=== PATIENT | male | born 1980 | race Caucasian/White ===

== ENCOUNTER 2017-03-11 15:27 | Emergency (ER) | payer SELFPAY ==
[~2017-03-11] VITALS: Ht 193 cm; Wt 132.0 kg
[~2017-03-11 15:27] MED LIST: AUGMENTIN875 MG PO; BACTRIM,SEPT1 TABLET PO; DURAGESIC75 MCG TD; GABAPENTIN400 MG PO; LEVAQUIN750 MG PO; PERCOCET 10/1 TABLET PO
[2017-03-11 18:40] LABS: HEMATOCRIT 43.7 % (38.0-50.0); HEMOGLOBIN 15.3 G/DL (12.5-16.6); MCH 31.4 PG (29.0-34.0); MCV 89.5 FL (86-99); PLATELET COUNT 364 K/uL (156-360); RBC DIS.WIDTH-SD 46.4 % (39-53); RED BLOOD COUNT 4.88 M/uL (4.00-5.50); WHITE BLOOD COUNT 12.5 K/uL (4.1-10.2)
[2017-03-11 18:47] LABS: CHLORIDE 107 mEq/L (99-109)
[2017-03-11 18:48] LABS: POTASSIUM 4.3 mEq/L (3.7-5.4); SODIUM 140 mEq/L (136-147)
[2017-03-11 18:49] LABS: GLUCOSE 97 mg/dL (70-99)
[2017-03-11 18:53] LABS: CREATININE 1.1 mg/dL (0.6-1.3); GFR ESTIMATE (CALCULATED) > 59 mL/min/ (58.99-99999)
[2017-03-11 18:54] LABS: UREA NITROGEN (BUN) 14 mg/dL (9-23)
[2017-03-11 19:00] LABS: ERTH.SED.RATE 15 MM/HR (0-15)
[2017-03-11 19:22] LABS: C-REACTIVE PROTEIN 3.3 MG/L (0-10)
[2017-03-11 19:29] LABS: APPEARANCE CLOUDY ((CLEAR)); BILIRUBIN NEGATIVE; BLOOD NEGATIVE; COLOR YELLOW ((YELLOW)); GLUCOSE (STRIP) NEGATIVE; KETONES NEGATIVE; LEUKOCYTES NEGATIVE; NITRITE NEGATIVE; PROTEIN (STRIP) 30; SPECIFIC GRAVITY 1.026 (1.000-1.030)
[2017-03-11 19:42] LABS: RED BLOOD CELLS NONE SEEN /HPF (0-5); WHITE BLOOD CELLS NONE SEEN /HPF (0-5)
[2017-03-11 19:43] LABS: AMORPHOUS PHOSPHATE CRYSTALS 2+; BACTERIA 2+ /HPF; EPITHELIAL CELLS NONE SEEN /HPF; MUCUS 2+ /LPF; UCUL ADDED? YES
[2017-03-11] MEDS ORDERED: PREDNISONE20 MG PO (20:23)
[2017-03-11] MEDS ORDERED: DILAUDID2 MG PO (20:23)
[2017-03-11 20:36] VITALS: BP 150/77
== END 2017-03-11 20:37 | disposition home or self-care (01) ==
LOC: EME 15:27
PROVIDERS: Physician Assistant
DX: M54.5 Low back pain (principal); M79.604 Pain in right leg; M79.605 Pain in left leg; F17.200 Nicotine dependence, unspecified, uncomplicated
CPT/HCPCS: 72100; 80048; 81003; 85027; 85651; 86140; 87086; 99281; 99285; J1885